=== PATIENT | female | born 1980 | race Caucasian/White ===

== ENCOUNTER 2016-11-24 20:39 | Emergency (ER) | payer OTHER ==
[~2016-11-24] VITALS: Ht 160 cm; Wt 104.3 kg
[2016-11-24] MEDS ORDERED: SYNTHROID88 MCG PO (21:13)
[2016-11-24] MEDS ORDERED: FLONASE16 GM NASBOTH (21:13)
[2016-11-24] MEDS ORDERED: CELEXA20 MG PO (21:14)
[2016-11-24] MEDS ORDERED: FLEXERIL10 MG PO (21:14)
[2016-11-24] MEDS ORDERED: PERCOCET 325-51 TAB PO (21:15)
[2016-11-24] MEDS ORDERED: CYTOMEL5 MCG PO (21:16)
[2016-11-24] MEDS ORDERED: NUVARING VAGIN1 EACH VAG (21:16)
[2016-11-24] MEDS ORDERED: PROVENTIL HFA6.7 GM INH (21:17)
== END 2016-11-24 21:32 | disposition short-term general hospital (02) ==
LOC: ER 20:39
DX: J34.89 Other specified disorders of nose and nasal sinuses (principal); Z41.1 Encounter for cosmetic surgery; Z88.6 Allergy status to analgesic agent
CPT/HCPCS: J1170